=== PATIENT | male | born 1955 | race Caucasian/White ===

== ENCOUNTER 2024-05-30 06:33 | Day surgery (SDC) | payer MEDICARE, BC ==
[~2024-05-30 06:33] MED LIST: Sodium Chloride 0.9% 10 ML Syringe FLUSH PRN; Sodium Chloride 0.9% 10 ML Syringe FLUSH SCH
[2024-05-30] MEDS ORDERED: Lidocaine 1% 4 ML ONE (06:40)
[2024-05-30] MEDS ORDERED: Propofol 200 MG/20 ML SDV ONE ×2 (06:41)
[2024-05-30] MEDS: Lactated Ringers 1,000 ML IV SCH (06:55)
== END 2024-05-30 08:10 | disposition home or self-care (01) ==
LOC: JD.SDS 06:33
PROVIDERS: ATTEND Surgery
DX: Z12.11 Encounter for screening for malignant neoplasm of colon (principal); R19.5 Other fecal abnormalities; D12.4 Benign neoplasm of descending colon; K64.0 First degree hemorrhoids; K57.30 Diverticulosis of large intestine without perforation or abscess without bleeding; I10 Essential (primary) hypertension; E11.9 Type 2 diabetes mellitus without complications; K21.9 Gastro-esophageal reflux disease without esophagitis; Z79.899 Other long term (current) drug therapy
CPT/HCPCS: 45380; J2704; J7120; 00811; J3490